=== PATIENT | female | born 1945 | race African-American/Black ===

== ENCOUNTER → 2019-04-23 | Outpatient (CLI) | payer MEDICARE, OTHER | END | disposition home or self-care (01) | LOC: RADPV 11:45 | DX: M79.672 Pain in left foot (principal) ==

== ENCOUNTER 2021-03-04 06:29 | Day surgery (SDC) | payer MEDICARE, OTHER ==
[2021-03-03 12:15] LABS: COVID AG,FIA SOURCE NASOPHARYNGEAL
[~2021-03-04] VITALS: Ht 158.8 cm; Wt 60.0 kg
[~2021-03-04 06:29] MED LIST: KETOROLAC TROMETHAMINE 0.5% 5 ML OPHTHALMIC SOLUTION ONE; MOXIFLOXACIN HCL 0.5% 3 ML OPHTHALMIC SOLUTION ONE; PHENYLEPHRINE HCL 2.5% 2 ML OPHTHALMIC SOLUTION ONE; RINGERS SOLUTION,LACTATED 500 ML IV ONE; TROPICAMIDE 1% 2 ML OPHTHALMIC SOLUTION ONE
[2021-03-04] MEDS ORDERED: BALANCED SALT 15 ML OPHTHALMIC IRRIG.SOLN OU ONE (06:30)
[2021-03-04] MEDS ORDERED: LIDOCAINE/PF 1% 2 ML VIAL IM ONE (06:30)
[2021-03-04] MEDS ORDERED: CHONDR SULF A SOD/HYALURONATE 1.05 ML KIT IO ONE (06:30)
[2021-03-04] MEDS ORDERED: FentaNYL CITRATE PF 100 MCG/2 ML VIAL IVP ONE (06:30)
[2021-03-04] MEDS ORDERED: EPINEPHrine 1:1,000 [1 MG/ML] AMP IM ONE (06:30)
[2021-03-04] MEDS ORDERED: POVIDONE-IODINE 10% 15 ML SOLUTION UD TP ONE (06:30)
[2021-03-04] MEDS ORDERED: MIDAZOLAM HCL 2 MG/2 ML VIAL IVP ONE (06:30)
[2021-03-04] MEDS ORDERED: TETRACAINE HCL/PF 0.5% 4 ML OPHTHALMIC SOLUTION OU ONE (06:30)
[2021-03-04] MEDS ORDERED: RINGERS SOLUTION,LACTATED 500 ML IV ONE (07:00)
[2021-03-04] MEDS: TROPICAMIDE 1% 2 ML OPHTHALMIC SOLUTION OD SCH ×3 (07:10→07:22)
[2021-03-04] MEDS: MOXIFLOXACIN HCL 0.5% 3 ML OPHTHALMIC SOLUTION OD SCH ×3 (07:10→07:22)
[2021-03-04] MEDS: PHENYLEPHRINE HCL 2.5% 2 ML OPHTHALMIC SOLUTION OD SCH ×3 (07:10→07:23)
[2021-03-04] MEDS: KETOROLAC TROMETHAMINE 0.5% 5 ML OPHTHALMIC SOLUTION OD SCH ×3 (07:10→07:23)
[2021-03-04 07:18] LABS: GLUCOMETER DEV NAME(LOC) SDS.; GLUCOSE,POINT OF CARE 100 MG/DL (70-110)
[2021-03-04] MEDS ORDERED: ASCO500 PO (07:46)
[2021-03-04] MEDS ORDERED: OMEG-135 PO (07:46)
[2021-03-04] MEDS ORDERED: FURO20 PO (07:46)
[2021-03-04] MEDS ORDERED: ASPI-1450 PO (07:46)
[2021-03-04] MEDS ORDERED: ATOR10TA69 PO (07:46)
[2021-03-04] MEDS ORDERED: CARV3 PO (07:46)
[2021-03-04] MEDS ORDERED: MULT-1103 PO (07:46)
[2021-03-04] MEDS ORDERED: VIT1CAPS47 PO (07:46)
[2021-03-04] MEDS ORDERED: VITA400T9 PO (07:46)
[2021-03-04] MEDS ORDERED: ACYC-138 PO (07:46)
[2021-03-04] MEDS ORDERED: CHOL200016 PO (07:46)
[2021-03-04] MEDS ORDERED: TELM40 PO (07:46)
[2021-03-04] MEDS ORDERED: SITA25 PO (07:46)
[2021-03-04] MEDS ORDERED: ZINC50TA71 PO (07:46)
[2021-03-04] MEDS ORDERED: AMLO10TA55 PO (07:46)
[2021-03-04] MEDS ORDERED: VITA1TAB39 PO (07:46)
== END 2021-03-04 10:00 | disposition home or self-care (01) ==
LOC: SURGERY 06:29
PROVIDERS: ATTEND Ophthalmology
DX: H25.11 Age-related nuclear cataract, right eye (principal); I10 Essential (primary) hypertension; E11.36 Type 2 diabetes mellitus with diabetic cataract; Z79.899 Other long term (current) drug therapy; Z98.890 Other specified postprocedural states
CPT/HCPCS: 66984; 82962; 87426; 93005; A9575; C9803; J0171; J2250; J3010; J3490; J7120; V2632

== ENCOUNTER 2021-04-01 06:34 | Day surgery (SDC) | payer MEDICARE, OTHER ==
[2021-03-30 10:30] LABS: COVID AG,FIA SOURCE NASAL SWAB
[~2021-04-01] VITALS: Ht 160 cm; Wt 58.6 kg
[~2021-04-01 06:34] MED LIST changes: +ACYC-138 PO; +AMLO10TA55 PO; +ASCO500 PO; +ASPI-1450 PO; +ATOR10TA69 PO; +CARV3 PO; +CHOL200016 PO; +FURO20 PO; +MULT-1103 PO; +OMEG-135 PO; +SITA25 PO; +TELM40 PO; +VIT1CAPS47 PO; +VITA1TAB39 PO; +VITA400T9 PO; +ZINC50TA71 PO
[2021-04-01] MEDS ORDERED: MIDAZOLAM HCL 2 MG/2 ML VIAL IVP ONE (06:35)
[2021-04-01] MEDS ORDERED: FentaNYL CITRATE PF 100 MCG/2 ML VIAL IVP ONE (06:35)
[2021-04-01] MEDS: KETOROLAC TROMETHAMINE 0.5% 5 ML OPHTHALMIC SOLUTION OS SCH ×3 (06:57→07:13)
[2021-04-01] MEDS: PHENYLEPHRINE HCL 2.5% 2 ML OPHTHALMIC SOLUTION OS SCH ×3 (06:57→07:13)
[2021-04-01] MEDS: MOXIFLOXACIN HCL 0.5% 3 ML OPHTHALMIC SOLUTION OS SCH ×3 (06:57→07:13)
[2021-04-01] MEDS: TROPICAMIDE 1% 2 ML OPHTHALMIC SOLUTION OS SCH ×3 (06:57→07:13)
[2021-04-01 07:10] LABS: GLUCOMETER DEV NAME(LOC) SDS.; GLUCOSE,POINT OF CARE 89 MG/DL (70-110)
[2021-04-01] MEDS ORDERED: EPINEPHrine 1:1,000 [1 MG/ML] AMP ONE (17:47)
[2021-04-01] MEDS ORDERED: TETRACAINE HCL/PF 0.5% 4 ML OPHTHALMIC SOLUTION ONE (17:47)
[2021-04-01] MEDS ORDERED: POVIDONE-IODINE 10% 15 ML SOLUTION UD ONE (17:47)
[2021-04-01] MEDS ORDERED: LIDOCAINE/PF 1% 2 ML VIAL ONE (17:47)
[2021-04-01] MEDS ORDERED: CHONDR SULF A SOD/HYALURONATE 1.05 ML KIT IO ONE (17:47)
== END 2021-04-01 09:00 | disposition home or self-care (01) ==
LOC: SURGERY 06:34
PROVIDERS: ATTEND Ophthalmology
DX: E11.36 Type 2 diabetes mellitus with diabetic cataract (principal); H25.12 Age-related nuclear cataract, left eye; I10 Essential (primary) hypertension; M17.12 Unilateral primary osteoarthritis, left knee; Z98.890 Other specified postprocedural states; Z79.82 Long term (current) use of aspirin; Z79.899 Other long term (current) drug therapy
CPT/HCPCS: 66984; 82962; 87426; 93005; A9575; C9803; J0171; J2250; J3010; J3490; J7120; V2632; Q9967

== ENCOUNTER 2021-05-25 09:24 | Day surgery (SDC) | payer MEDICARE, OTHER ==
[~2021-05-25] VITALS: Ht 160 cm; Wt 58.6 kg
[~2021-05-25 09:24] MED LIST changes: -KETOROLAC TROMETHAMINE 0.5% 5 ML OPHTHALMIC SOLUTION ONE; -MOXIFLOXACIN HCL 0.5% 3 ML OPHTHALMIC SOLUTION ONE; -PHENYLEPHRINE HCL 2.5% 2 ML OPHTHALMIC SOLUTION ONE; -RINGERS SOLUTION,LACTATED 500 ML IV ONE; -TROPICAMIDE 1% 2 ML OPHTHALMIC SOLUTION ONE
[2021-05-25] MEDS ORDERED: SODIUM CHLORIDE 0.9% 1,000 ML IV ONE (09:30)
[2021-05-25] MEDS ORDERED: SODIUM CHLORIDE 0.9% 1,000 ML ONE (09:41)
[2021-05-25 09:50] LABS: COVID AG,FIA SOURCE NASOPHARYNGEAL
[2021-05-25 10:49] LABS: GLUCOMETER DEV NAME(LOC) SDS.; GLUCOSE,POINT OF CARE 99 MG/DL (70-110)
[2021-05-25] MEDS ORDERED: PROPOFOL 1% 20 ML VIAL IVP ONE (12:00)
[2021-05-25] MEDS ORDERED: LIDOCAINE/PF 2% 5 ML VIAL IM ONE (12:00)
== END 2021-05-25 13:50 | disposition home or self-care (01) ==
LOC: SURGERY 09:24
PROVIDERS: ATTEND Student in an Organized Health Care Education/Training Program
DX: R19.7 Diarrhea, unspecified (principal); K57.30 Diverticulosis of large intestine without perforation or abscess without bleeding; K64.8 Other hemorrhoids; I10 Essential (primary) hypertension; E11.9 Type 2 diabetes mellitus without complications; M19.90 Unspecified osteoarthritis, unspecified site; Z98.42 Cataract extraction status, left eye; Z98.41 Cataract extraction status, right eye; Z79.899 Other long term (current) drug therapy; Z98.890 Other specified postprocedural states
CPT/HCPCS: 45380; 82962; 87426; 88305; 88313; C1769; C9803; J2704; J3490; J7030